=== PATIENT | male | born 1980 | race Caucasian/White ===

== ENCOUNTER 2016-08-21 11:10 | Emergency (ER) | payer OTHER, SELFPAY ==
--- NOTE | 2016-08-21 12:14 | ERRECORD ---
[facility] EMERGENCY RECORD HPI URI (11:46 MBRI) CHIEF COMPLAINT: Patient presents for evaluation of cough, Patient presents for evaluation of with some chest tightness and wheezing. Pt with hx of asthma. HISTORIAN: History provided by patient. LOCATION: Symptoms are generalized. QUALITY: Pain is dull in nature, described as tightness in chest. SEVERITY: Maximum severity of symptoms moderate, Currently symptoms are mild. TIME COURSE: Gradual onset of symptoms, 2, days priror to arrival, There has been no change in the patient's symptoms over time. ASSOCIATED WITH: No associated chest pain, No associated chills, No associated fever, No associated headache, No associated neck pain, Associated with shortness of breath, Denies any other complaints. EXACERBATED BY: Patient's condition exacerbated by nothing. RELIEVED BY: Patient's condition relieved by prescription medications, Inhalers, Patient's condition relieved by Pt states using his rescue inhalers several times a week but ran out several days ago. ROS (11:46 MBRI) CONSTITUTIONAL: Negative constitutional review of systems, Historian denies chills, denies fever. EYES: Negative eye review of systems. ENT: Historian denies otalgia, denies rhinorrhea, denies sinus pain, denies sore throat, denies stridor, denies voice changes. CARDIOVASCULAR: Historian denies chest pain, denies dyspnea on exertion. RESPIRATORY: Historian reports cough, reports shortness of breath, denies sputum, denies stridor, reports wheezing. GI: Negative gastrointestinal review of systems, Historian denies abdominal pain, denies diarrhea, denies nausea, denies vomiting. MUSCULOSKELETAL: Historian denies injury, Denies any musculoskeletal pain. SKIN: Negative skin review of systems, Historian denies skin changes. PAST MEDICAL HISTORY (11:27 ERUI) MEDICAL HISTORY: Flu vaccine not up to date, Tetanus immunization up to date, Pneumococcal vaccine not up to date, Past medical history includes pulmonary disease, asthma. MALE SURGICAL HISTORY: RIGHT FEMUR, RIGHT SIDE OF FACE, BLEEDING ULCER CAUTERIZED, LEFT SHOULDER SURGERY. PSYCHIATRIC HISTORY: No previous psychiatric history. SOCIAL HISTORY: Patient denies alcohol use, Patient denies drug use, Patient currently uses tobacco. KNOWN ALLERGIES &a-1R&a+25V*p+0X*f2390D*c202B*c15G*c2P*p-0X&a-25V&a+1R Name: Asher Noble : 1980 M36 MedRec: [id number] AcctNum: [id number] Prepared: WedAug 21, 2016 12:07 by Interface Page 1 of 3 pMD [facility] EMERGENCY RECORD Penicillins CURRENT MEDICATIONS No recorded medications VITAL SIGNS VITAL SIGNS: BP: 129/88, Pulse: 112, Resp: 20, Temp: 98.5 (Oral), O2 sat: 99 on Room Air, Time: 08/21/2016 11:17. (11:17 ERUI) BP: 130/78, Pulse: 90, Resp: 20, Pain: 0, O2 sat: 98 on Room Air, Time: 08/21/2016 11:30. (11:30 ERUI) BP: 134/84, Pulse: 89, Resp: 20, Pain: 0, O2 sat: 99 on Room Air, Time: 08/21/2016 11:55. (11:55 ERUI) PHYSICAL EXAM (11:46 MBRI) CONSTITUTIONAL: Vital Signs Reviewed, Nursing notes reviewed. HEAD: Head exam included findings of head atraumatic, normocephalic. EYES: Eye exam included findings of eyelids normal to inspection, Pupils equally round and reactive to light, Extraocular muscles intact. ENT: Ear exam normal, external ear normal, tympanic membranes normal, Pharynx exam normal. NECK: Neck exam normal, no cervical adenopathy, no tenderness. RESPIRATORY CHEST: Respiratory exam included findings of no respiratory distress, Wheezing present, posteriorally, diffusely, to bilateral upper lobes, to bilateral lower lobes, No rales, No rhonchi, Breath sounds diminished, to bilateral upper lobes, to bilateral lower lobes, Chest exam included findings of chest movement symmetrical, Chest expansion equal, no tenderness, no crepitus. CARDIOVASCULAR: Cardiovascular exam included findings of heart rate regular rate and rhythm, Heart sounds normal, Carotids normal. BACK: Back exam included findings of normal inspection. UPPER EXTREMITY: Upper extremity exam included findings of inspection normal, Range of motion normal, no cyanosis, no clubbing, no edema. SKIN: Skin exam included findings of skin warm, dry, and normal in color. PSYCHIATRIC: Pt is awake and alert. EKG INTERPRETATION (11:47 MBRI) 12 LEAD EKG INTERPRETATION: 12 lead EKG interpreted by Emergency Department Physician at time of study, 12 lead EKG shows normal sinus rhythm, Rate (beats per minute): 95, with no ectopics, Conduction normal, ST segments normal, T waves normal, [place] normal. MEDICATION ADMINISTRATION SUMMARY Drug Name: DuPatricab, Dose Ordered: 3 mL, Route: Nebulize, Status: &a-1R&a+25V*p+0X*q0209G*c202B*c15G*c2P*p-0X&a-25V&a+1R Name: Asher Noble : 1980 M36 MedRec: [id number] AcctNum: [id number] Prepared: WedAug 21, 2016 12:07 by Interface Page 2 of 3 pMD [facility] EMERGENCY RECORD Given, Time: 11:24 08/21/2016, Detailed record available in Medication Service section. DOCTOR NOTES (12:00 MBRI) TEXT: After re-evaluation the patient appears to be resting comfortably. No further resp distress and lung exam is improved. EKG was normal. Pt was counseled about his tobacco use for approx. 5 minutes. He is also supposed to be on preventive meds but does not take these. Based on his hx and symptoms he is likely uncontrolled and I rec placing him back on low dose inhaled GC meds. No impending resp failure or airway issues are present at this time. I have discussed the continued treatment with the patient and family and have answered questions. I have discussed the strict reasons for return and follow-up and medication needs have been addressed. The patient is stable for d/c home at this time. PROBLEM LIST No recorded problems DIAGNOSIS (12:04 MBRI) FINAL: PRIMARY: MILD INTERMIT ASTHMA W/AC EXACERBAT. PRESCRIPTION albuterol: AEROSOL (GM) : 90 mcg : INHALATION : Quantity: 1 Unit: inhalation Route: INHALATION Schedule: every 4 hours prn Dispense: 1 May substitute. Refills: 1 . (11:49 MBRI) NOTES: No refills. (11:49 MBRI) Pulmicort Flexhaler: AEROSOL POWDER, BREATH ACTIVATED (EA) : 180 mcg/actuation (160 mcg delivered) : INHALATION : Quantity: 1 Unit: puff(s) Route: INHALATION Schedule: once a day (in the morning) Dispense: 1 May substitute. Refills: 1 . (11:54 MBRI) NOTES: No refills. (11:54 MBRI) DISPOSITION PATIENT: Disposition Type: Discharge, Disposition: *Discharge Home, Condition: Improved. (12:04 MBRI) Patient left the department. (12:04 LGIB) Zhou: ERUI=JOSEPH Chirinos, Yana LGIB=JOSEPH Sanders, Cleo MBRI=DO Santiago Matthew &a-1R&a+25V*p+0X*a2514Z*c202B*c15G*c2P*p-0X&a-25V&a+1R Name: Asher Noble : 1980 M36 MedRec: [id number] AcctNum: [id number] Prepared: WedAug 21, 2016 12:07 by Interface Page 3 of 3 pMD MTDD
--- NOTE | 2016-08-21 12:18 | PICIS ---
[facility] EMERGENCY RECORD TRIAGE (11:16 ERUI) TRIAGE NOTES: C/O OF CHEST TIGHTNESS, STATES HX OF ASTHMA, LAST INHALER 2 DAYS AGO, +WHEEZING,. (11:16 ERUI) PATIENT: NAME: Asher Noble, AGE: 36, GENDER: male, : Sun 1980, TIME OF GREET: WedAug 21, 2016 11:11, PREFERRED LANGUAGE: Belarusian, ETHNICITY: Not or , ECODE BILLING MAP: [facility], SSN: [id number], Zip Code: [address], KG WEIGHT: [phone], PHONE: , , , PERSON ID: [id number], PAYMENT: [employer] Self Pay, PCP: DO PIERRE JOHN SCOTT. (11:16 ERUI) COMPLAINT: WHEEZING, CHEST TIGHTNESS. (11:16 ERUI) ADMISSION: URGENCY: 3 Urgent, ADMISSION SOURCE: Home, TRANSPORT: CAR, BED: TRIAGE. (11:16 ERUI) SIRS SCORING: Heart Rate 110-139 (2), Temp range 96.8-101.1 (0), respiratory rate 12-24 (0), Mental Status altered: no (0). (11:27 ERUI) TRIAGE SCREENING: Patient denies suicidal ideation, Patient denies presence of domestic violence. (11:27 ERUI) TREATMENTS IN PROGRESS: Treatments given Prehospital: NONE. (11:27 ERUI) PROVIDERS: TRIAGE NURSE: Yana Chirinos RN. (11:16 ERUI) PREVIOUS VISIT ALLERGIES: Penicillins. (11:16 ERUI) Penicillins. (11:27 ERUI) KNOWN ALLERGIES Penicillins CURRENT MEDICATIONS No recorded medications VITAL SIGNS VITAL SIGNS: BP: 129/88, Pulse: 112, Resp: 20, Temp: 98.5 (Oral), O2 sat: 99 on Room Air, Time: 08/21/2016 11:17. (11:17 ERUI) BP: 130/78, Pulse: 90, Resp: 20, Pain: 0, O2 sat: 98 on Room Air, Time: 08/21/2016 11:30. (11:30 ERUI) BP: 134/84, Pulse: 89, Resp: 20, Pain: 0, O2 sat: 99 on Room Air, Time: 08/21/2016 11:55. (11:55 ERUI) NURSING ASSESSMENT: RESPIRATORY /CHEST (11:18 ERUI) CONSTITUTIONAL: Patient arrives ambulatory, Gait steady, History obtained from patient, Patient appears comfortable, Patient cooperative, Patient alert, Oriented to person, place and time, Skin warm, Skin dry, Skin normal in color, Patient complains of CHEST TIGHTNESS, WHEEZING. PAIN: midsternal, CHEST TIGHTNESS, Pain exacerbated by, COUGH, Nothing has been tried to alleviate the pain. RESPIRATORY/CHEST: Lungs auscultated, Breath sounds with wheezing, scattered, to bilateral upper lobes, to bilateral lower lobes, Respiratory &a-1R&a+25V*p+0X*c0451I*c202B*c15G*c2P*p-0X&a-25V&a+1R Name: Asher Noble : 1980 M36 MedRec: [id number] AcctNum: [id number] Prepared: WedAug 21, 2016 12:14 by Interface Page 1 of 6 pMD [facility] EMERGENCY RECORD assessment findings include respiratory effort easy, Respirations regular, Conversing normally, Neck and chest exam findings include trachea midline, Chest expansion equal, Chest movement symmetrical, no signs of distress, no associated cough noted, no associated fever. ENT: Ear assessment findings include ear normal to inspection, Mouth and throat assessment findings include mouth inspection normal. SAFETY: Side rails up, Cart/Stretcher in lowest position, Call light within reach, Hospital ID band on. NURSING PROCEDURE: DISCHARGE NOTE (11:59 ERUI) DISCHARGE: Patient discharged to home, ambulating without assistance, driving self, unaccompanied, Patient requested and was provided an electronic copy of Discharge Instructions, Simple or moderate discharge teaching performed, Prescriptions given and instructions on side effects given, Name of prescription(s) given: ALBUTEROL, PULMICORT FLEXHALER, Above person(s) verbalized understanding of discharge instructions and follow-up care. BELONGINGS: Belongings remain with patient, Valuables remain with patient. NURSING PROCEDURE: EKG CHART (11:21 ERUI) PATIENT IDENTIFIER: Patient actively involved in identification process, Patient's identity verified by patient stating name, Patient's identity verified by patient stating date. EKG: EKG indicated for CHEST TIGHTNESS, 12 lead EKG performed on the left chest, done by RIVER RUIZ. SAFETY: Side rails up, Cart/Stretcher in lowest position, Call light within reach, Hospital ID band on. NURSING PROCEDURE: RESPIRATORY INTERVENTIONS PATIENT IDENTIFIER: Patient actively involved in identification process, Patient's identity verified by patient stating name, Patient's identity verified by patient stating date. (11:21 ERUI) RESPIRATORY INTERVENTIONS: Respiratory interventions indicated for wheezing, Pre-intervention breath sounds with wheezing, scattered, to bilateral upper lobes, to bilateral lower lobes, Pre-intervention oxygen saturation 99%, Notes: DUONEB. (11:21 ERUI) FOLLOW-UP: After procedure, oxygen saturation 99%, on room air, After procedure, breath sounds clear, to bilateral upper lobes, to bilateral lower lobes. (11:40 ERUI) ORDER DETAILS Order Name: EKG 12 Lead in Emergency Room, Status: Active, Time: 11:18 08/21/2016, User: MAXIMINO, - Ordered for: DO Santiago Matthew, - Entered by: DO Santiago Matthew - WedAug 21, 2016 11:18, - Quantity: 1, &a-1R&a+25V*p+0X*h2675G*c202B*c15G*c2P*p-0X&a-25V&a+1R Name: Asher Noble : 1980 M36 MedRec: [id number] AcctNum: [id number] Prepared: WedAug 21, 2016 12:14 by Interface Page 2 of 6 D [facility] EMERGENCY RECORD Order Name: ERRT * Smal Vol Neb Initial Trmt, Status: Active, Time: 11:18 08/21/2016, User: MAXIMINO, - Ordered for: DO Santiago Matthew, - Entered by: DO Santiago Matthew - WedAug 21, 2016 11:18, - Quantity: 1. MEDICATION ADMINISTRATION SUMMARY Drug Name: DuoNeb, Dose Ordered: 3 mL, Route: Nebulize, Status: Given, Time: 11:24 08/21/2016, Detailed record available in Medication Service section. MEDICATION SERVICE DuoNeb: Order: DuoNeb (ipratropium bromide/albuterol sulfate) - Dose: 3 mL : Nebulize Ordered by: Camron Santiago DO Entered by: Camron Santiago DO WedAug 21, 2016 11:18 , Acknowledged by: Cleo Sanders RN WedAug 21, 2016 11:21 Documented as given by: Cleo Sanders RN WedAug 21, 2016 11:24 Patient, Medication, Dose, Route and Time verified prior to administration. Site: Medication administered via Hand-held nebulizer, With oxygen, Pre-administration assessment shows O2 saturation reading 99%, Pre-administration assessment shows O2 AMT: R.A., Correct patient, time, route, dose and medication confirmed prior to administration, Patient advised of actions and side-effects prior to administration, Allergies confirmed and medications reviewed prior to administration, Patient in position of comfort, Side rails up, Cart in lowest position. : Follow Up : Response assessment performed, No signs or symptoms of allergic reaction noted, Decreased symptoms, Decreased respiratory effort, Advised not to ambulate without assistance, Patient in position of comfort, Side rails up, Cart in lowest position. (11:59 ERUI) HPI URI (11:46 MBRI) CHIEF COMPLAINT: Patient presents for evaluation of cough, Patient presents for evaluation of with some chest tightness and wheezing. Pt with hx of asthma. HISTORIAN: History provided by patient. LOCATION: Symptoms are generalized. QUALITY: Pain is dull in nature, described as tightness in chest. SEVERITY: Maximum severity of symptoms moderate, Currently symptoms are mild. TIME COURSE: Gradual onset of symptoms, 2, days priror to arrival, There has been no change in the patient's symptoms over time. ASSOCIATED WITH: No associated chest pain, No associated chills, No associated fever, No associated headache, No associated neck pain, Associated with shortness of breath, Denies any other complaints. EXACERBATED BY: Patient's &a-1R&a+25V*p+0X*q0041U*c202B*c15G*c2P*p-0X&a-25V&a+1R Name: Asher Noble : 1980 M36 MedRec: [id number] AcctNum: [id number] Prepared: WedAug 21, 2016 12:14 by Interface Page 3 of 6 pMD [facility] EMERGENCY RECORD condition exacerbated by nothing. RELIEVED BY: Patient's condition relieved by prescription medications, Inhalers, Patient's condition relieved by Pt states using his rescue inhalers several times a week but ran out several days ago. ROS (11:46 MBRI) CONSTITUTIONAL: Negative constitutional review of systems, Historian denies chills, denies fever. EYES: Negative eye review of systems. ENT: Historian denies otalgia, denies rhinorrhea, denies sinus pain, denies sore throat, denies stridor, denies voice changes. CARDIOVASCULAR: Historian denies chest pain, denies dyspnea on exertion. RESPIRATORY: Historian reports cough, reports shortness of breath, denies sputum, denies stridor, reports wheezing. GI: Negative gastrointestinal review of systems, Historian denies abdominal pain, denies diarrhea, denies nausea, denies vomiting. MUSCULOSKELETAL: Historian denies injury, Denies any musculoskeletal pain. SKIN: Negative skin review of systems, Historian denies skin changes. PAST MEDICAL HISTORY (11:27 ERUI) MEDICAL HISTORY: Flu vaccine not up to date, Tetanus immunization up to date, Pneumococcal vaccine not up to date, Past medical history includes pulmonary disease, asthma. MALE SURGICAL HISTORY: RIGHT FEMUR, RIGHT SIDE OF FACE, BLEEDING ULCER CAUTERIZED, LEFT SHOULDER SURGERY. PSYCHIATRIC HISTORY: No previous psychiatric history. SOCIAL HISTORY: Patient denies alcohol use, Patient denies drug use, Patient currently uses tobacco. PHYSICAL EXAM (11:46 MBRI) CONSTITUTIONAL: Vital Signs Reviewed, Nursing notes reviewed. HEAD: Head exam included findings of head atraumatic, normocephalic. EYES: Eye exam included findings of eyelids normal to inspection, Pupils equally round and reactive to light, Extraocular muscles intact. ENT: Ear exam normal, external ear normal, tympanic membranes normal, Pharynx exam normal. NECK: Neck exam normal, no cervical adenopathy, no tenderness. RESPIRATORY CHEST: Respiratory exam included findings of no respiratory distress, Wheezing present, posteriorally, diffusely, to bilateral upper lobes, to bilateral lower lobes, No rales, No rhonchi, Breath sounds diminished, to bilateral upper lobes, to bilateral lower lobes, Chest exam included &a-1R&a+25V*p+0X*v7518X*c202B*c15G*c2P*p-0X&a-25V&a+1R Name: Asher Noble : 1980 M36 MedRec: [id number] AcctNum: [id number] Prepared: WedAug 21, 2016 12:14 by Interface Page 4 of 6 pMD [facility] EMERGENCY RECORD findings of chest movement symmetrical, Chest expansion equal, no tenderness, no crepitus. CARDIOVASCULAR: Cardiovascular exam included findings of heart rate regular rate and rhythm, Heart sounds normal, Carotids normal. BACK: Back exam included findings of normal inspection. UPPER EXTREMITY: Upper extremity exam included findings of inspection normal, Range of motion normal, no cyanosis, no clubbing, no edema. SKIN: Skin exam included findings of skin warm, dry, and normal in color. PSYCHIATRIC: Pt is awake and alert. EVENTS TRANSFER: Triage to Emergency Triage. (WedAug 21, 2016 11:16 ERUI) Emergency Triage to Emergency Room -03. (11:17 ERUI) Removed from Emergency Emergency Room -03. (12:04 LGIB) EKG INTERPRETATION (11:47 MBRI) 12 LEAD EKG INTERPRETATION: 12 lead EKG interpreted by Emergency Department Physician at time of study, 12 lead EKG shows normal sinus rhythm, Rate (beats per minute): 95, with no ectopics, Conduction normal, ST segments normal, T waves normal, [place] normal. O2SAT INTERPRETATION (11:46 MBRI) O2SAT: Oxygen saturation interpretation: Normal. DOCTOR NOTES (12:00 MBRI) TEXT: After re-evaluation the patient appears to be resting comfortably. No further resp distress and lung exam is improved. EKG was normal. Pt was counseled about his tobacco use for approx. 5 minutes. He is also supposed to be on preventive meds but does not take these. Based on his hx and symptoms he is likely uncontrolled and I rec placing him back on low dose inhaled GC meds. No impending resp failure or airway issues are present at this time. I have discussed the continued treatment with the patient and family and have answered questions. I have discussed the strict reasons for return and follow-up and medication needs have been addressed. The patient is stable for d/c home at this time. PROBLEM LIST No recorded problems DIAGNOSIS (12:04 MBRI) FINAL: PRIMARY: MILD INTERMIT ASTHMA W/AC EXACERBAT. DISPOSITION PATIENT: Disposition Type: Discharge, Disposition: *Discharge Home, Condition: Improved. (12:04 MBRI) Patient left the department. (12:04 LGIB) &a-1R&a+25V*p+0X*s7798A*c202B*c15G*c2P*p-0X&a-25V&a+1R Name: Asher Noble : 1980 M36 MedRec: [id number] AcctNum: [id number] Prepared: WedAug 21, 2016 12:14 by Interface Page 5 of 6 pMD [facility] EMERGENCY RECORD INSTRUCTION (11:55 MBRI) DISCHARGE: ASTHMA, ACUTE (ADULT). FOLLOWUP: DO PIERRE JOHN SCOTT, [facility], [address] [place] [address], , Follow up with Primary Care Physician in 7-10 days. SPECIAL: Please return for any further issues or concerns, we would be happy to see you. We hope you feel better soon. Follow-up with your PCP May return to work. PRESCRIPTION albuterol: AEROSOL (GM) : 90 mcg : INHALATION : Quantity: 1 Unit: inhalation Route: INHALATION Schedule: every 4 hours prn Dispense: 1 May substitute. Refills: 1 . (11:49 MBRI) NOTES: No refills. (11:49 MBRI) Pulmicort Flexhaler: AEROSOL POWDER, BREATH ACTIVATED (EA) : 180 mcg/actuation (160 mcg delivered) : INHALATION : Quantity: 1 Unit: puff(s) Route: INHALATION Schedule: once a day (in the morning) Dispense: 1 May substitute. Refills: 1 . (11:54 MBRI) NOTES: No refills. (11:54 MBRI) IMAGING *EKG: Image captured from scanner. (11:58 LGIB) *DISCHARGE INSTRUCTIONS RECEIPT: Image captured from scanner. (12:00 ERUI) *SUPPLY CHARGE SHEET: Image captured from scanner. (12:00 ERUI) Zhou: ERUMarti=JOSEPH Chirinos, Yana JONESIB=JOSEPH Sanders, Cleo THORNERI=DO Santiago Matthew &a-1R&a+25V*p+0X*k9629Y*c202B*c15G*c2P*p-0X&a-25V&a+1R Name: Asher Noble : 1980 6 MedRec: [id number] AcctNum: [id number] Prepared: WedAug 21, 2016 12:14 by Interface Page 6 of 6 pMD [facility] MEDICATION RECONCILIATION You were seen in the Emergency Department on: WedAug 21, 2016 KNOWN ALLERGIES Penicillins MEDICATIONS GIVEN WHILE IN THE EMERGENCY DEPARTMENT DuoNeb (ipratropium bromide/albuterol sulfate) - Dose: 3 milliliter(s) : Nebulize Notes from the emergency department Reviewed with patient PRESCRIPTIONS (2) Printed (2) albuterol : AEROSOL (GM) : 90 mcg : INHALATION Quantity: 1, Unit: inhalation, Route: INHALATION, Schedule: every 4 hours prn, Dispense: 1 &a-1R&a+25V*p+0X*l7743K*c202B*c15G*c2P*p-0X&a-25V&a+1R Name: Asher Noble : 1980 6 MedRec: [id number] AcctNum: [id number] Prepared: WedAug 21, 2016 12:14 by Interface [facility]
== END 2016-08-21 12:00 | disposition home or self-care (01) ==
LOC: BURERS 11:10
DX: J45.901 Unspecified asthma with (acute) exacerbation (principal); Z72.0 Tobacco use
CPT/HCPCS: 93005; 94640; J7620

== ENCOUNTER 2016-11-14 16:34 | Emergency (ER) | payer SELFPAY ==
[2016-11-14] MEDS ORDERED: Triamcinolone 40 MG/ML VIAL ONE (16:52)
== END 2016-11-14 17:12 | disposition home or self-care (01) ==
LOC: BURERS 16:34
DX: L23.7 Allergic contact dermatitis due to plants, except food (principal); J45.909 Unspecified asthma, uncomplicated; Z87.891 Personal history of nicotine dependence; Z79.899 Other long term (current) drug therapy
CPT/HCPCS: 96372; J3301

== ENCOUNTER 2022-07-05 11:37 | Emergency (ER) | payer SELFPAY ==
[2022-07-05] MEDS ORDERED: Morphine 4 MG/ML VIAL ONE (12:03)
[2022-07-05] MEDS ORDERED: Ondansetron PF 4 MG/2 ML Vial ONE (12:03)
[2022-07-05] MEDS ORDERED: Ketorolac Tromethamine 30 MG/ML VIAL ONE (12:03)
[2022-07-05 12:05] LABS: #Basophils 0.1 thou/uL (0.0-0.2); #Eosinphils 0.2 thou/uL (0.0-0.7); #Lymphocytes 1.3 thou/uL (1.20-3.40); #Monocytes 0.6 thou/uL (0.11-0.59); %Basophils 1.1 % (0.0-1.0); %Eosinophils 1.6 % (0.0-10.0); %Lymphocytes 12.4 % (21.0-51.0); %Monocytes 5.9 % (0.0-10.0); %Neutrophils 79.1 % (42.0-75.0); Mean Corpuscular HGB CONC 34.3 g/dL (32.0-36.0); Mean Corpuscular Hemoglobin 31.1 pg (27.0-31.0); Mean Corpuscular Volume 90.7 fl (78.0-98.0); Mean Platelet Volume 9.9 fL (7.4-10.4); Platelet Count 218 10x3/uL (130-400); Red Blood Cell (RBC) Count 5.16 mill/uL (4.70-6.10); White Blood Cell (WBC) Count 10.1 10x3/uL (4.8-10.8)
[2022-07-05 12:12] LABS: Bilirubin Small (Negative); Blood, Urine Large (Negative); Clarity Cloudy (Clear); Glucose, Urine (Dipstick) Negative (Negative); Ketone, Urine 15 mg/dL (Negative); Leukocyte Trace (Negative); Nitrite Negative (Negative); Protein, Urine (Dipstick) 100 mg/dL (Neg-Trace); Specific Gravity, Urine 1.025 (1.005-1.030)
[2022-07-05 12:12] LABS: ALT (SGPT) 19 U/L (8-55); AST (SGOT) 21 U/L (5-34); Albumin 4.1 g/dL (3.5-5.0); Alkaline Phosphatase 57 U/L (40-110); Anion Gap 13 mmol/L (10-20); BUN (Urea Nitrogen) 10 mg/dL (8.9-20.6); Bilirubin, Total 0.9 mg/dL (0.2-1.2); Calc. Creatinine Clearance 0 mL/min (70-130); Calcium 9.3 mg/dL (7.8-10.44); Carbon Dioxide 21 mmol/L (22-29); Chloride 108 mmol/L (98-107); Estimated GFR 95; Globulin 2.9 g/dL (2.4-3.5); Glucose 124 mg/dL (70-105); Lipase 23 U/L (8-78); Potassium 3.6 mmol/L (3.5-5.1); Sodium 138 mmol/L (136-145)
[2022-07-05 12:26] LABS: RBC/HPF Greater than 50 HPF (0-3)
[2022-07-05 12:27] LABS: Bacteria/HPF 1+ HPF (None Seen); Mucous/LPF 4+ LPF (<2+); Squamous Epithelial 0-3 HPF (0-3)
== END 2022-07-05 13:01 | disposition home or self-care (01) ==
LOC: BURERS 11:37
DX: N13.2 Hydronephrosis with renal and ureteral calculous obstruction (principal); Z87.891 Personal history of nicotine dependence
CPT/HCPCS: 74176; 80053; 81003; 81015; 83690; 85025; 96374; 96375; J1885; J2270; J2405

== ENCOUNTER 2022-08-22 16:58 | Emergency (ER) | payer SELFPAY ==
[2022-08-22] MEDS ORDERED: Doxycycline 100 MG CAP ONE (17:19)
[2022-08-22] MEDS ORDERED: NEOMYCIN-POLYMYXIN-HC EAR SUSP 200 DROP/10 ML BOT ONE (17:19)
== END 2022-08-22 17:23 | disposition home or self-care (01) ==
LOC: BURERS 16:58
DX: H60.501 Unspecified acute noninfective otitis externa, right ear (principal); J06.9 Acute upper respiratory infection, unspecified; J45.909 Unspecified asthma, uncomplicated; Z87.891 Personal history of nicotine dependence
CPT/HCPCS: 99283